=== PATIENT | male | born 1955 | race Caucasian/White ===

== ENCOUNTER 2020-09-27 07:39 | Outpatient (REF) | payer OTHER, SELFPAY ==
[2020-09-27 08:25] LABS: MANUAL DIFF FLAG NO
[2020-09-27 08:29] LABS: Basophils Percent Auto 0.4 % (0-2); Eosinophils Absolute Auto 0.1 X10*3/uL (0.0-0.4); Eosinophils Percent Auto 1.8 % (0-4); Hematocrit 45.4 % (42-52); Hemoglobin 15.2 g/dl (14.0-18.0); Imm Gran Abs Auto 0.02 X10*3/uL (0.00-0.03); Imm Gran Pct Auto 0.3 % (0.0-0.4); Lymphocytes Absolute Auto 2.3 X10*3/uL (1.2-4.9); Lymphocytes Percent Auto 33.5 % (20-40); Mean Corpuscular HGB Conc 33.5 g/dl (31.0-36.0); Mean Corpuscular Volume 89.5 fL (80-98); Mean Platelet Volume 10.3 fL (9.4-12.4); Monocytes Absolute Auto 0.6 X10*3/uL (0.1-1.2); Monocytes Percent Auto 8.1 % (2-11); Neutrophils Absolute Auto 3.8 X10*3/uL (2.0-8.3); Neutrophils Percent Auto 55.9 % (45-73); Platelet Count 191 X10*3/uL (160-400); Red Blood Count 5.07 X10*6/uL (4.60-5.80); Red Cell Distribution Width 12.3 % (11.0-16.0); White Blood Count 6.8 X10*3/uL (4.8-10.8)
[2020-09-27 08:38] LABS: Estimated Average Glucose 131 mg/dL; Hemoglobin A1c % 6.2 %
[2020-09-27 08:46] LABS: Alanine Aminotransferase 21 U/L (0-40); Albumin Level 4.2 g/dL (3.5-5.0); Alkaline Phosphatase 67 U/L (39-117); Anion Gap 12 (12-20); Aspartate Amino Transferase 17 U/L (5-37); Bilirubin Total 0.3 mg/dL (0.0-1.0); Blood Urea Nitrogen 14 mg/dL (9-16); Calcium 8.6 mg/dL (8.4-10.2); Carbon Dioxide 27 mmol/L (22-29); Chloride 106 mmol/L (96-108); Cholesterol 141 mg/dL; Estimated Glomerular Filt Rate > 60; Glucose Fasting 104 mg/dL (60-99); HDL Cholesterol 39 mg/dL; LDL Cholesterol Calculated 64 mg/dl; Potassium 4.6 mmol/l (3.3-5.1); Sodium 140 mmol/L (135-145); Total Protein 6.5 g/dL (6.5-8.0); Triglycerides 192 mg/dL
[2020-09-27 09:09] LABS: Prostate Specific Antigen 1.39 ng/mL (<0.05-4.0)
[2020-09-27 09:35] LABS: Glucose Urine UA NEG (NEG); Leukocyte Esterase Urine NEG (NEG); Nitrite Urine NEG (NEG); Urine Blood TRACE (NEG); Urine Ketones NEG (NEG); Urine Protein NEG (NEG-TRACE)
[2020-09-27 09:36] LABS: Appearance Urine CLEAR; Color Urine YELLOW
[2020-09-27 09:43] LABS: RBC Urine 0-2 /HPF (0); WBC Urine 0 /HPF (0-4)
[2020-09-27 10:49] LABS: Microalbum/Creatinine Ratio Ur 5.7 ug/mg cr
== END 2020-09-27 07:40 | disposition home or self-care (01) ==
LOC: HO.LAB 07:39
PROVIDERS: PCP Internal Medicine; Visit Provider Internal Medicine
DX: I10 Essential (primary) hypertension (principal); R73.03 Prediabetes; K21.9 Gastro-esophageal reflux disease without esophagitis; E78.00 Pure hypercholesterolemia, unspecified; Z12.5 Encounter for screening for malignant neoplasm of prostate
CPT/HCPCS: 36415; 80053; 80061; 81001; 81003; 82043; 83036; 84153; 85025

== ENCOUNTER 2021-07-03 09:16 | Emergency (ER) | payer OTHER, SELFPAY ==
--- NOTE | ~2021-07-03 | CT_ITS ---
EXAMINATION: CT HEAD WITHOUT CONTRAST CLINICAL INFORMATION: Head injury, positive LOC. Rule out fracture. COMPARISON: None TECHNIQUE: Contiguous axial imaging was performed from the skull base to vertex without intravenous administration of contrast. This CT examination was performed using dose optimization techniques as appropriate, variously including the following: *Automated exposure control *Adjustment of mA and/or kV according to patient size (this includes techniques or standardized protocols for targeted exams where dose is matched to indication/reason for exam; i.e. extremities or head) *Use of iterative reconstruction technique DLP: 796 mGy-cm FINDINGS: There is no evidence of acute intracranial hemorrhage or territorial infarction. No abnormal mass effect or midline shift is seen. Ramires to white matter differentiation is well preserved. No extra-axial fluid collections are identified. The ventricles are normal in size. There is no abnormal attenuation within the brain parenchyma. The osseous structures and soft tissues are normal. The mastoid air cells and visualized portions of the paranasal sinuses are well aerated. CT/CT head/brain wo con IMPRESSION: No acute intracranial process seen.
[2021-07-03 09:19] VITALS: BP 169/86; PULSE 91; RESP 16; TEMP 36.9; O2SAT 99; BMI 22.9
--- NOTE | 2021-07-03 10:55 | ED_ITS ---
HPI - Fall General Chief Complaint: Fall Stated Complaint: Fall Time Seen by Provider: 07/03/21 09:37 Source: patient Mode of arrival: EMS Limitations: no limitations History of Present Illness HPI Narrative: 65-year-old male who presents emergency department for evaluation of injuries from a fall. The patient works at [employer]. He states that he was moving a student desk when he slipped on a polished floor causing his legs to go out from under him. He states that he fell backwards landing on his back, right elbow and striking the right side of his head on the floor. The patient does not recall but it was reported that he may have had a loss of consciousness. He was transported to the emergency department by ambulance he states that he was able to stand up and walk to the stretcher without any difficulty. Patient is currently complaining of [id number] pain on the right side of his head and a headache which is located throughout his head. He denied numbness, weakness, nausea or vomiting. He is also complaining of mild pain with no limited motion of the right elbow. He is also complaining of mild to moderate, constant, dull, lower back pain. Related Data Allergies Allergy/AdvReac Type Severity Reaction Status Date / Time No Known Allergies Allergy Verified 07/03/21 09:22 Review of Systems Review of Systems: Yes all other systems are reviewed and are negative [facility] Past Medical History [facility] Narrative: Past medical history: Hypertension, hyperlipidemia, GERD, anxiety. Past surgical history: Appendectomy, back surgery L5-S1. Social history: The patient smokes 1/2 pack of cigarettes per day times 45 years. Denies alcohol use. He denies drug use. Social History Social History Advance Directives: Yes Advance Directives Information Provided: Yes Advance Directives on File: No Physical Exam Vital Signs: Vital Signs: Last Vital Signs Temp 98.5 F 07/03/21 09:19 Pulse 91 07/03/21 09:19 Resp 16 07/03/21 09:19 BP 169/86 H 07/03/21 09:19 Pulse Ox 99 07/03/21 09:19 Body Mass Index 22.9 Const: General: cooperative and no acute distress Orientation/consciousness: oriented to person and oriented to place Limitations: no limitations HENMT: Head: Yes normal to inspection, Yes normocephalic and Yes other (Tender, right scalp, no hematoma, no ecchymosis) Ears: external ears normal General nose exam: Normal external nose present Face and sinus: Yes normal facial exam Mouth: Normal oral and palatal mucosa present Throat: Yes posterior oropharynx normal Eyes: General: appearance normal, both eyes and all related structures Pupils: Equal, round and reactive pupils present Neck: Neck: Yes normal visual inspection, Yes no lymphadenopathy, Yes trachea midline and Yes supple Chest: Chest palpation & inspection: normal inspection of the chest and normal palpation of entire chest wall Resp: Effort & Inspection: normal respiratory effort and able to speak in complete sentences Auscultation: clear to auscultation bilaterally Cardio: Rate: regular rate Rhythm: regular rhythm Heart sounds: S1 normal heart sound present, S2 normal heart sound present and no murmurs GI: Inspection: Yes normal to inspection Palpation (GI): Soft to palpation, nontender and no guarding Auscultation: normal bowel sounds : General: Yes no CVA tenderness Back/Spine/Pelvis: Back: no CVA tenderness Cervical Spine: normal cervical lordosis Thoracic/Lumbar Spine: thoracic and lumbar spine normal to inspection and paraspinal muscle tenderness bilaterally in the mid lumbar and in the lower lumbar Skin: General skin exam: no rashes or lesions noted Neuro: General: oriented to person and oriented to place Cranial nerves: Yes CN's II-XII intact bilaterally and Yes Equal, round and reactive pupils present Cognition (Neuro): normal cognition Motor exam (neuro): 5/5 motor strength present throughout Extrem: Other: The patient has no ecchymosis soft tissue swelling or tenderness with palpation of his right elbow, has full range of motion without any limitations. His other extremities are unremarkable. Psych: Appearance: grossly normal Speech and movement: Normal speech and movement present Affect: normal affect Attitude: cooperative Thought process: Normal thought process present Thought content: Normal thought content present Course Course Course Narrative: 65-year-old male who presents emergency department for evaluation of injuries from a fall that occurred at work. The patient did strike his head on the floor and had reported loss consciousness. On his physical examination he did have tenderness with palpation over his right scalp with no hematoma or ecchymosis. He also had tenderness with palpation of his lower lumbar back as well as his right elbow with no limited range of motion of his back or elbow. I did obtain a CT scan of the patient's head and this was interpreted as no acute fracture or bleed by the radiologist. The patient was treated with ibuprofen 600 mg orally. Patient was discharged home. Patient believes that he can return to work tomorrow therefore he was given no time off. The patient was given verbal and printed instructions prior to discharge. The patient was advised to follow-up with his PCP in 2 days and to return to the emergency department if his symptoms get worse or if he develops any new symptoms that are concerning to him. Discharge Plan Discharge Clinical Impression: Closed head injury, Contusion of elbow, right, Back contusion, Fall, Accident while engaged in work-related activity Patient Disposition: Home, Self-Care Instructions: Head Injury (ED), Low Back Strain (ED) Additional Instructions: Take Motrin (ibuprofen) 200 mg pills, 3 pills every 6 hours as needed for pain. Take Tylenol (acetaminophen) 500 mg pills, 2 pills every 6 hours as needed for pain. Apply ice for 15 minutes to the area that hurts for 15 minutes. Do this 4-6 times a day to help reduce the pain in your back. Continue with normal activities as tolerated since staying in bed and not moving around will make your pain worse. Please return to the Emergency Department or see your doctor immediately if your symptoms get worse or if you develop any new symptoms that are concerning you. Follow up with your doctor in 2 day. Please read the other printed discharge instructions on head injury and low back strain Interventions: ED Discharge Assessment Last Done: 07/03/21 11:09 Discharge Date/Time: 07/03/21 11:10
[2021-07-03] MEDS: Ibuprofen 600 MG TABLET PO (10:58)
== END 2021-07-03 11:10 | disposition home or self-care (01) ==
PROVIDERS: Emergency Provider Emergency Medicine Emergency Medical Services; PCP Internal Medicine
DX: S09.90XA Unspecified injury of head, initial encounter (principal); S50.01XA Contusion of right elbow, initial encounter; M79.601 Pain in right arm; I10 Essential (primary) hypertension; E78.5 Hyperlipidemia, unspecified; F17.210 Nicotine dependence, cigarettes, uncomplicated; W01.0XXA Fall on same level from slipping, tripping and stumbling without subsequent striking against object, initial encounter; Y93.9 Activity, unspecified; Y92.9 Unspecified place or not applicable; Y99.0 Civilian activity done for income or pay; Z71.6 Tobacco abuse counseling
CPT/HCPCS: 70450; 99283; 99284

== ENCOUNTER → 2021-07-16 09:41 | Outpatient (BNVA) | payer OTHER, SELFPAY | PROVIDERS: PCP Internal Medicine; Visit Provider Physician Assistant | DX: S00.93XA Contusion of unspecified part of head, initial encounter (principal); W18.30XA Fall on same level, unspecified, initial encounter; M25.521 Pain in right elbow; R07.81 Pleurodynia | CPT/HCPCS: 99204 ==

== ENCOUNTER 2021-09-09 14:25 | Outpatient (REF) | payer OTHER, SELFPAY ==
--- NOTE | ~2021-09-09 | XR_ITS ---
EXAMINATION: XR SINUSES CLINICAL INFORMATION: Right sinus pain and pressure. COMPARISON: None TECHNIQUE: 3 views of the sinuses were obtained. FINDINGS: Paranasal sinuses appear clear without air-fluid levels. No fractures are identified. No radiodense foreign bodies. The soft tissues are unremarkable. XR/XR sinus <3V IMPRESSION: Unremarkable examination.
== END 2021-09-09 14:26 | disposition home or self-care (01) ==
LOC: HO.XRAY 14:25
PROVIDERS: PCP Internal Medicine; Visit Provider Internal Medicine
DX: J34.89 Other specified disorders of nose and nasal sinuses (principal)
CPT/HCPCS: 70210

== ENCOUNTER 2021-09-30 07:20 | Outpatient (REF) | payer OTHER, SELFPAY ==
--- NOTE | ~2021-09-30 | CT_ITS ---
EXAMINATION: CT SINUS WITHOUT CONTRAST CLINICAL INFORMATION: 65-year-old with sinus and head pain. COMPARISON: None TECHNIQUE: Volumetric CT imaging of the paranasal sinuses was done with multiplanar reformatted reconstructions. This CT examination was performed using dose optimization techniques as appropriate, variously including the following: *Automated exposure control *Adjustment of mA and/or kV according to patient size (this includes techniques or standardized protocols for targeted exams where dose is matched to indication/reason for exam; i.e. extremities or head) *Use of. Iterative reconstruction technique DLP: 116 mGy-cm FINDINGS: Nasal Cavity: There is marked nasal septal deviation to the right with a spur encroaching on the right middle turbinate and middle meatus as well as the right inferior turbinate. There is paradoxical curvature of the left middle turbinate, with an atelectatic right middle turbinate. There is predominant opacification of the olfactory recesses bilaterally, which is nonspecific. There is polypoid soft tissue thickening in the superior right nasal cavity extending into the right olfactory recess which may reflect a polyp. Correlate with direct visualization. The nasopharyngeal soft tissues appear grossly unremarkable. Maxillary Sinuses: Well-pneumatized and predominantly clear with a tiny retention cyst along the floor of the left maxillary sinus with bilaterally patent OMCs. Ethmoid Sinuses: The ethmoid complex is largely unopacified, with intact bony galvin. Frontal Sinuses: The frontal sinuses are clear and well pneumatized, with bilaterally patent frontal recesses. There is an Onodi cell on the left extending to the tuberculum sellae. Sphenoid Sinus: Well-pneumatized. Minor mucosal thickening adjacent to the left sphenoid ostium. The carotid canals are covered by bone. Additional Findings: The visualized orbital soft tissues structures and visualized intracranial structures appear grossly unremarkable within the limitations of the exam. The visualized mastoids and middle ear cavities are unopacified. CT/CT sinus wo con IMPRESSION: 1. Marked nasal septal deviation to the right with a prominent spur on the right, as described above. 2. Bilateral olfactory recess opacification with a possible anterosuperior right nasal polyp and possibly a smaller anterosuperior left nasal polyp encroaching on the olfactory recesses. Correlate with direct visualization. 3. Probable tiny retention cyst along the floor of the left maxillary sinus.
== END 2021-09-30 07:21 | disposition home or self-care (01) ==
LOC: HO.CT 07:20
PROVIDERS: PCP Internal Medicine; Visit Provider Internal Medicine
DX: J34.89 Other specified disorders of nose and nasal sinuses (principal); R51.9 Headache, unspecified
CPT/HCPCS: 70486

== ENCOUNTER 2022-01-25 07:20 | Outpatient (REF) | payer OTHER, SELFPAY ==
[2022-01-25 07:34] LABS: MANUAL DIFF FLAG NO
[2022-01-25 07:54] LABS: Appearance Urine HAZY; Color Urine YELLOW; Glucose Urine UA NEG (NEG); Leukocyte Esterase Urine NEG (NEG); Nitrite Urine NEG (NEG); Urine Blood 1+ (NEG); Urine Ketones NEG (NEG); Urine Protein NEG (NEG-TRACE)
[2022-01-25 07:54] LABS: Basophils Percent Auto 0.4 % (0-2); Eosinophils Absolute Auto 0.1 X10*3/uL (0.0-0.4); Eosinophils Percent Auto 1.5 % (0-4); Hematocrit 46.8 % (42.0-52.0); Hemoglobin 15.1 g/dl (14.0-18.0); Imm Gran Abs Auto 0.02 X10*3/uL (0.00-0.03); Imm Gran Pct Auto 0.3 % (0.0-0.4); Lymphocytes Absolute Auto 2.2 X10*3/uL (1.2-4.9); Lymphocytes Percent Auto 30.1 % (20-40); Mean Corpuscular HGB Conc 32.3 g/dl (31.0-36.0); Mean Corpuscular Hemoglobin 29.5 pg (27.0-33.0); Mean Corpuscular Volume 91.6 fL (80.0-98.0); Mean Platelet Volume 10.3 fL (9.4-12.4); Monocytes Absolute Auto 0.7 X10*3/uL (0.1-1.2); Neutrophils Absolute Auto 4.2 x10*3/uL (2.0-8.3); Neutrophils Percent Auto 58.7 % (45-73); Platelet Count 178 X10*3/uL (160-400); Red Blood Count 5.11 X10*6/uL (4.60-5.80); Red Cell Distribution Width 12.3 % (11.0-16.0); White Blood Count 7.2 X10*3/uL (4.8-10.8)
[2022-01-25 08:01] LABS: Mucus Urine 2+ /LPF; WBC Urine 0 /HPF (0-4)
[2022-01-25 08:24] LABS: Alanine Aminotransferase 22 U/L (0-40); Albumin Level 4.1 g/dL (3.5-5.0); Alkaline Phosphatase 61 U/L (39-117); Anion Gap 13 (12-20); Aspartate Amino Transferase 17 U/L (5-37); Bilirubin Total 0.4 mg/dL (0.0-1.0); Blood Urea Nitrogen 15 mg/dL (9-16); Calcium 9.2 mg/dL (8.4-10.2); Carbon Dioxide 26 mmol/L (22-29); Chloride 106 mmol/L (96-108); Cholesterol 164 mg/dL; Estimated Glomerular Filt Rate > 60; Glucose Fasting 121 mg/dL (60-99); HDL Cholesterol 42 mg/dL; LDL Cholesterol Calculated 94 mg/dl; Potassium 4.3 mmol/L (3.3-5.1); Sodium 141 mmol/L (135-145); Total Protein 6.6 g/dL (6.5-8.0); Triglycerides 143 mg/dL
[2022-01-25 08:47] LABS: Prostate Specific Antigen 2.46 ng/mL (<0.05-4.0)
== END 2022-01-25 07:21 | disposition home or self-care (01) ==
LOC: HO.LAB 07:20
PROVIDERS: PCP Internal Medicine; Visit Provider Internal Medicine
DX: I10 Essential (primary) hypertension (principal); N40.0 Benign prostatic hyperplasia without lower urinary tract symptoms; K21.9 Gastro-esophageal reflux disease without esophagitis; E78.00 Pure hypercholesterolemia, unspecified; Z12.5 Encounter for screening for malignant neoplasm of prostate
CPT/HCPCS: 36415; 80053; 80061; 81001; 84153; 85025

== ENCOUNTER 2022-06-11 15:27 | Outpatient (REF) | payer OTHER, SELFPAY ==
[2022-06-11 16:05] LABS: Estimated Average Glucose 128 mg/dL; Hemoglobin A1c % 6.1 %
[2022-06-11 16:31] LABS: Anion Gap 11 (12-20); Blood Urea Nitrogen 14 mg/dL (9-16); Calcium 9.1 mg/dL (8.4-10.2); Carbon Dioxide 26 mmol/L (22-29); Chloride 105 mmol/L (96-108); Estimated Glomerular Filt Rate > 60; Glucose Random 96 mg/dL (60-115); Potassium 4.2 mmol/L (3.3-5.1); Sodium 138 mmol/L (135-145)
== END 2022-06-11 15:28 | disposition home or self-care (01) ==
LOC: HO.LAB 15:27
PROVIDERS: PCP Internal Medicine; Visit Provider Internal Medicine
DX: R73.03 Prediabetes (principal); I10 Essential (primary) hypertension
CPT/HCPCS: 36415; 80048; 83036

== ENCOUNTER 2022-08-06 07:18 | Day surgery (SDC) | payer OTHER, SELFPAY ==
[2022-07-31 14:13] VITALS: BMI 29.0
--- NOTE | 2022-08-06 07:43 | P.CONAN_ITS ---
HPI - Anesthesia Eval Consult details Narrative: Abdominal pain, colon surveillance PMFSH Active Problems Active Problems: All Active Problems (Updated 07/31/22 @ 14:13 by Clara Zhou RN) Closed head injury (Acute) Contusion of elbow, right (Acute) Back contusion (Acute) Fall (Acute) Accident while engaged in work-related activity (Acute) Past Medical History Medical History Barretts esophagus Elevated cholesterol GERD (gastroesophageal reflux disease) HTN (hypertension) Family History Family history of problems with anesthesia: No Surgical History Surgical History H/O colonoscopy History of back surgery History of esophagogastroduodenoscopy (EGD) Hx of appendectomy History of Problems with Anesthesia: No Social History Social History Patient Tobacco Use Status: Current everyday Tobacco user Tobacco use type: Cigarette Cigarette Packs Per Day: 1 Cigarettes Per Day: 20.0 Advance Directives: No Advance Directives Information Provided: Yes Meds Allergies Allergy/AdvReac Type Severity Reaction Status Date / Time No Known Allergies Allergy Verified 07/03/21 09:22 Active Medications: Current Medications Sodium Biphosphate/Sodium Phosphate (Sodium Phosphate,[place]-Dibasic 133 Ml Enema) 133 ml FL ONCE PRN PRN Reason: Poor Colonoscopy Prep Results Home Medications Medication Instructions Recorded Confirmed Last Taken Type buspirone 5 mg tablet 1 tab PO BID 07/31/22 07/31/22 Unknown History lisinopril 5 mg tablet 1 tab PO DAILY 07/31/22 07/31/22 Unknown History omeprazole 20 mg capsule,delayed 1 cap PO DAILY 07/31/22 07/31/22 Unknown Hist ory release simvastatin 40 mg tablet 1 tab PO DAILY 07/31/22 07/31/22 Unknown History Exam Exam Date and Time: August 06, 2022 0743 Height,Weight and Vital Signs: Height 5 ft 7 in Weight 83.915 kg Airway Mallampati Class: II TM Dist: >3cm Neck ROM: Full Loose/Missing/Broken Teeth: Yes (poor dentition, 2 upper crowns missing, 1 on each side. patient stated his dentist fixing soon) Heart: [id number] Lungs: cta b/l Assessment and Plan Assessment Anesthesia Assessment: Anesthesia Plan Discussed and Chart Reviewed Final Anesthetic Review Family History of Problems with Anesthesia: No History of Problems with Anesthesia: No NPO: Yes ASA Class: II Final Preanesthetic Review: No Changes in Pt Med Stat, Meds/Allgs Chart Revi ewed, Consent Obtained/Reviewed and Anes Risks/Benef Reviewed Patient Risk: Intermediate Procedure Risk: Low Assessment/Block/Sedation in SS: Assess/Block/Sedation-SS Anesthetic Plan Anesthetic Plan: MAC: and Agree w/ Assess. and Plan Disposition: Standard PACU
[2022-08-06 07:45] VITALS: BP 127/86; PULSE 75; RESP 18; TEMP 36.4; O2SAT 96; BMI 29.0
[2022-08-06 07:50] VITALS: BMI 29.0
[2022-08-06] MEDS: Lactated Ringers 1,000 ML 50 ML IVCONT (08:06)
[2022-08-06 09:41] VITALS: BP 101/62; PULSE 90; RESP 16; TEMP 36.4; O2SAT 96
--- NOTE | 2022-08-06 09:45 | P.BOP_ITS ---
Brief Operative Note Date of Service: 08/06/22 Pre-op diagnosis: Toth's, Screening Post-op diagnosis: other (Same, Hiatal hernia, Colon polyp) Procedure: Colonoscopy to the cecum and TI with cold snare polypectomy, EGD with biopsies Surgeon: Teodoro Choi Anesthesia: MAC Was an Sales Clerk Food used for this Procedure?: No Estimated blood loss (mL): 2.0 Pathology: other (A. Polyp at 20cm B. EG Junction at 37cm) Condition: stable Disposition: PACU
[2022-08-06 09:56] VITALS: BP 131/86; PULSE 82; RESP 16; TEMP 36.4; O2SAT 96
--- NOTE | 2022-08-06 10:33 | OP_ITS ---
SURGEON: Teodoro Choi MD INDICATIONS: The patient presents for evaluation of personal history of tubular adenoma of the colon, colorectal cancer screening, gastroesophageal reflux, and Toth esophagus. Full consent has been obtained from him for this, including risks of bleeding and perforation. PREOPERATIVE DIAGNOSIS: POSTOPERATIVE DIAGNOSIS: Gastroesophageal reflux, Toth esophagus, colorectal cancer screening, personal history of tubular adenoma of the colon, hiatal hernia, colon polyp, diverticulosis, and internal hemorrhoids. PROCEDURE PERFORMED: Esophagogastroduodenoscopy with biopsy, and colonoscopy to the cecum and terminal ileum with cold snare polypectomy. ESTIMATED BLOOD LOSS: COMPLICATIONS: ANESTHESIA: Monitored anesthesia care. ASSISTANTS: SPECIMENS: PREOPERATIVE DIAGNOSES: Gastroesophageal reflux, Toth esophagus, colorectal cancer screening, personal history of tubular adenoma of the colon. DESCRIPTION OF PROCEDURE: The patient was placed in the left lateral decubitus position. The digital rectal exam revealed no abnormalities. The Olympus video pediatric colonoscope was entered into the rectum and advanced easily to the cecum. Once in the cecum, I did identify a normal-appearing cecal pouch with appendiceal orifice and a normal-appearing ileocecal valve. The terminal ileum was cannulated and appeared normal. The scope was withdrawn back in the colon. The entire cecum and ileocecal valve appeared normal. The scope was slowly withdrawn assessing all mucosal surfaces carefully. Preparation was excellent. At 20 cm was an approximately 5 or 6 mm polyp, which was removed by cold snare polypectomy and recovered by suction. The polypectomy site appeared clean, without any sign of residual polyp nor any significant bleeding. I did not visualize any other polyps, colitis, nor angiodysplasia. There was a mild amount of sigmoid diverticulosis. In the rectum, the scope was retroflexed visualizing internal hemorrhoids but no other pathology. The rectal mucosa appeared normal. The scope was straightened and withdrawn from the patient. He was turned around for the upper endoscopy. The Olympus video gastroscope was passed in the posterior oropharynx and upper esophagus under direct vision. The scope was passed slowly into the distal esophagus. The gastroesophageal junction appeared at 37 cm. There was a very minimal irregularity but no esophagitis. The scope entered into the stomach. There was a small to moderate-sized hiatal hernia. The hiatal hernia mucosa appeared normal. The scope was advanced to the pylorus and the duodenum was cannulated to the descending portion. The duodenum including the bulb appeared normal without mass or ulceration. The scope was withdrawn back in the stomach. The gastric antrum and body appeared normal with good peristalsis. The scope was retroflexed visualizing the proximal stomach carefully, which appeared normal, without any sign of mass or ulceration. The scope was straightened and withdrawn back to the esophagus. Biopsies were obtained from the EG junction at 37 cm. Proximal to this, the esophageal mucosa appeared normal. The scope was withdrawn from the patient. He tolerated both procedures well and was returned to the recovery area in stable condition. IMPRESSION: 1. Colon polyp. 2. Diverticulosis. 3. Internal hemorrhoids. 4. Hiatal hernia. 5. History of Toth esophagus. PLAN: The results of the biopsies will be checked. I would recommend a repeat upper endoscopy and colonoscopy in 5 years. I do not think the upper endoscopy needs to be done sooner given the very minimal findings both in the past and on today's exam. He was advised not to use any aspirin or NSAIDs for 1 week. He will continue omeprazole for symptomatic relief of reflux. MD CRISTOFER Aguilera/CHINO / [id number]
== END 2022-08-06 10:43 | disposition home or self-care (01) ==
PROVIDERS: PCP Internal Medicine; Visit Provider Internal Medicine
PROC: (CPT 45385; principal; 2022-08-06 08:30)
DX: Z12.11 Encounter for screening for malignant neoplasm of colon (principal); Z86.010 Personal history of colon polyps; K63.5 Polyp of colon; K57.30 Diverticulosis of large intestine without perforation or abscess without bleeding; K64.8 Other hemorrhoids; K22.70 Barrett's esophagus without dysplasia; K21.9 Gastro-esophageal reflux disease without esophagitis; K44.9 Diaphragmatic hernia without obstruction or gangrene; I10 Essential (primary) hypertension; E78.5 Hyperlipidemia, unspecified; F41.1 Generalized anxiety disorder; F17.210 Nicotine dependence, cigarettes, uncomplicated; Z79.899 Other long term (current) drug therapy
CPT/HCPCS: 45385; 43239; 88305

== ENCOUNTER 2023-02-16 06:15 | Outpatient (REF) | payer OTHER, SELFPAY ==
[2023-02-16 06:25] LABS: MANUAL DIFF FLAG NO
[2023-02-16 08:01] LABS: Basophils Percent Auto 0.4 % (0-2); Eosinophils Absolute Auto 0.1 X10*3/uL (0.0-0.4); Eosinophils Percent Auto 1.7 % (0-4); Hematocrit 45.3 % (42.0-52.0); Hemoglobin 14.9 g/dl (14.0-18.0); Imm Gran Abs Auto 0.02 X10*3/uL (0.00-0.03); Imm Gran Pct Auto 0.3 % (0.0-0.4); Lymphocytes Absolute Auto 2.9 X10*3/uL (1.2-4.9); Lymphocytes Percent Auto 42.1 % (20-40); Mean Corpuscular HGB Conc 32.9 g/dl (31.0-36.0); Mean Corpuscular Hemoglobin 28.9 pg (27.0-33.0); Mean Platelet Volume 10.8 fL (9.4-12.4); Monocytes Absolute Auto 0.7 X10*3/uL (0.1-1.2); Monocytes Percent Auto 9.8 % (2-11); Neutrophils Absolute Auto 3.2 x10*3/uL (2.0-8.3); Neutrophils Percent Auto 45.7 % (45-73); Platelet Count 201 X10*3/uL (160-400); Red Blood Count 5.15 X10*6/uL (4.60-5.80); Red Cell Distribution Width 12.2 % (11.0-16.0); White Blood Count 6.9 X10*3/uL (4.8-10.8)
[2023-02-16 08:01] LABS: Appearance Urine Clear; Color Urine Yellow; Glucose Urine UA Negative (Negative); Leukocyte Esterase Urine Negative (Negative); Nitrite Urine Negative (Negative); PH 5.5 (5.0-9.0); Specific Gravity - Urine 1.025 (1.005-1.025); UMIC TRIGGER UA YES; Urine Blood Small (1+) (Negative); Urine Ketones Negative (Negative); Urine Protein Negative (Neg-Trace)
[2023-02-16 08:12] LABS: Estimated Average Glucose 137 mg/dL; Hemoglobin A1c % 6.4 %
[2023-02-16 08:15] LABS: Bacteria Urine None Seen (None Seen); Hyaline Casts Urine 0-2 /LPF (0-2); Squamous Epithelial Cell Urine 0-2 /HPF (0-2); WBC Urine 0-5 /HPF (0-5)
[2023-02-16 08:29] LABS: Creatinine Urine 253.98 mg/dL; Microalbum/Creatinine Ratio Ur 6.2 ug/mg cr
[2023-02-16 08:35] LABS: Alanine Aminotransferase 20 U/L (0-40); Albumin Level 4.3 g/dL (3.5-5.0); Alkaline Phosphatase 64 U/L (39-117); Anion Gap 14 (12-20); Aspartate Amino Transferase 17 U/L (5-37); Bilirubin Total 0.6 mg/dL (0.0-1.0); Blood Urea Nitrogen 12 mg/dL (9-16); Calcium 8.8 mg/dL (8.4-10.2); Carbon Dioxide 25 mmol/L (22-29); Chloride 105 mmol/L (96-108); Cholesterol 179 mg/dL; Estimated Glomerular Filt Rate > 60; Glucose Fasting 112 mg/dL (60-99); HDL Cholesterol 40 mg/dL; LDL Cholesterol Calculated 92 mg/dl; Sodium 140 mmol/L (135-145); Total Protein 6.7 g/dL (6.5-8.0); Triglycerides 236 mg/dL
== END 2023-02-16 06:16 | disposition home or self-care (01) ==
LOC: HO.LAB 06:15
PROVIDERS: PCP Internal Medicine; Visit Provider Internal Medicine
DX: Z00.00 Encounter for general adult medical examination without abnormal findings (principal); I10 Essential (primary) hypertension; N40.0 Benign prostatic hyperplasia without lower urinary tract symptoms; Z72.0 Tobacco use
CPT/HCPCS: 36415; 80053; 80061; 81001; 81003; 82043; 83036; 85025

== ENCOUNTER 2023-08-27 11:21 | Outpatient (REF) | payer MEDICARE, SELFPAY ==
[2023-08-27 14:55] LABS: Creatinine Urine 175.36 mg/dL; Microalbum/Creatinine Ratio Ur 6.8 ug/mg cr (<30)
== END 2023-08-27 11:22 | disposition home or self-care (01) ==
LOC: HO.LAB 11:21
PROVIDERS: PCP Internal Medicine; Visit Provider Internal Medicine
DX: I10 Essential (primary) hypertension (principal); R73.03 Prediabetes; K21.9 Gastro-esophageal reflux disease without esophagitis; E78.5 Hyperlipidemia, unspecified
CPT/HCPCS: 36415; 80053; 82043; 82570; 83036; 85025

== ENCOUNTER 2023-12-17 14:46 | Outpatient (REF) | payer MEDICARE, SELFPAY ==
--- NOTE | ~2023-12-17 | XR_ITS ---
EXAMINATION: XR SHOULDER, LEFT CLINICAL INFORMATION: Pain when lifting arm. COMPARISON: None available. TECHNIQUE: AP external rotation, Grashey, scapular Y, and axillary views of the left shoulder. FINDINGS: Bony alignment and mineralization are normal. The glenohumeral joint is intact. 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 The acromioclavicular and coracoclavicular intervals are normal. No fracture or dislocation is seen. There is no abnormal soft tissue calcification or foreign body. No left pneumothorax is seen. XR/XR shoulder LT min 2V IMPRESSION: 1. 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 2. No fracture or dislocation is seen.
== END 2023-12-17 14:47 | disposition home or self-care (01) ==
LOC: HO.XRAY 14:46
PROVIDERS: PCP Internal Medicine; Visit Provider Internal Medicine
DX: M25.512 Pain in left shoulder (principal)
CPT/HCPCS: 73030

== ENCOUNTER 2024-04-12 06:51 | Outpatient (REF) | payer MEDICARE, SELFPAY ==
[2024-04-12 07:10] LABS: MANUAL DIFF FLAG NO
[2024-04-12 07:35] LABS: Basophils Percent Auto 0.4 % (0-2); Eosinophils Absolute Auto 0.1 X10*3/uL (0.0-0.4); Eosinophils Percent Auto 1.5 % (0-4); Hematocrit 45.1 % (42.0-52.0); Hemoglobin 15.1 g/dl (14.0-18.0); Imm Gran Abs Auto 0.02 X10*3/uL (0.00-0.03); Imm Gran Pct Auto 0.3 % (0.0-0.4); Lymphocytes Absolute Auto 2.4 X10*3/uL (1.2-4.9); Lymphocytes Percent Auto 35.2 % (20-40); Mean Corpuscular HGB Conc 33.5 g/dl (31.0-36.0); Mean Corpuscular Hemoglobin 29.8 pg (27.0-33.0); Mean Corpuscular Volume 89.1 fL (80.0-98.0); Mean Platelet Volume 10.3 fL (9.4-12.4); Monocytes Absolute Auto 0.7 X10*3/uL (0.1-1.2); Monocytes Percent Auto 9.7 % (2-11); Neutrophils Absolute Auto 3.6 x10*3/uL (2.0-8.3); Neutrophils Percent Auto 52.9 % (45-73); Platelet Count 204 X10*3/uL (160-400); Red Blood Count 5.06 X10*6/uL (4.60-5.80); Red Cell Distribution Width 12.8 % (11.0-16.0); White Blood Count 6.7 X10*3/uL (4.8-10.8)
[2024-04-12 08:10] LABS: Alanine Aminotransferase 18 U/L (0-40); Albumin Level 4.2 g/dL (3.5-5.0); Alkaline Phosphatase 75 U/L (39-117); Anion Gap 13 (12-20); Aspartate Amino Transferase 16 U/L (5-37); Bilirubin Total 0.3 mg/dL (0.0-1.0); Blood Urea Nitrogen 16 mg/dL (9-16); Calcium 9.2 mg/dL (8.4-10.2); Carbon Dioxide 26 mmol/L (22-29); Chloride 107 mmol/L (96-108); Cholesterol 134 mg/dL (<200); Estimated Glomerular Filt Rate > 60; Glucose Fasting 123 mg/dL (60-99); HDL Cholesterol 45 mg/dL (>40); LDL Cholesterol Calculated 65 mg/dL (<100); Potassium 3.9 mmol/L (3.3-5.1); Sodium 142 mmol/L (135-145); Total Protein 6.8 g/dL (6.5-8.0); Triglycerides 122 mg/dL (<150)
[2024-04-12 08:13] LABS: Estimated Average Glucose 128 mg/dL; Hemoglobin A1c % 6.1 % (<6.0)
[2024-04-12 08:26] LABS: Prostate Specific Antigen 5.46 ng/mL (<0.05-4.0)
[2024-04-12 08:47] LABS: Appearance Urine Clear; Color Urine Yellow; Glucose Urine UA Negative (Negative); Leukocyte Esterase Urine Negative (Negative); Nitrite Urine Negative (Negative); PH 5.5 (5.0-9.0); Specific Gravity - Urine >= 1.030 (1.005-1.025); UMIC TRIGGER UA YES; Urine Blood Moderate (2+) (Negative); Urine Ketones Negative (Negative); Urine Protein Negative (Neg-Trace)
[2024-04-12 08:52] LABS: Bacteria Urine None Seen (None Seen); Hyaline Casts Urine 0-2 /LPF (0-2); Squamous Epithelial Cell Urine 0-2 /HPF (0-2); WBC Urine 0-5 /HPF (0-5)
[2024-04-12 09:45] LABS: Creatinine Urine 203.63 mg/dL; Microalbum/Creatinine Ratio Ur 9.8 ug/mg cr (<30)
== END 2024-04-12 06:52 | disposition home or self-care (01) ==
LOC: HO.LAB 06:51
PROVIDERS: PCP Internal Medicine; Visit Provider Internal Medicine
DX: R73.03 Prediabetes (principal); I10 Essential (primary) hypertension; Z12.5 Encounter for screening for malignant neoplasm of prostate; K21.9 Gastro-esophageal reflux disease without esophagitis
CPT/HCPCS: 36415; 80053; 80061; 81001; 82043; 82570; 83036; 84153; 85025

== ENCOUNTER 2024-08-25 13:30 | Outpatient (REF) | payer MEDICARE, SELFPAY ==
[2024-08-25 14:20] LABS: Estimated Average Glucose 123 mg/dL; Hemoglobin A1C 161.6726 umol/L; Hemoglobin A1c % 5.9 % (<6.0); Total Hemoglobin (HGBA1C) 3921.9971 umol/L
[2024-08-25 14:44] LABS: Anion Gap 10 (12-20); Blood Urea Nitrogen 12 mg/dL (9-16); Calcium 9.6 mg/dL (8.4-10.2); Carbon Dioxide 27 mmol/L (22-29); Chloride 106 mmol/L (96-108); Estimated Glomerular Filt Rate > 60; Glucose Random 84 mg/dL (60-115); Potassium 4.1 mmol/L (3.3-5.1); Sodium 139 mmol/L (135-145)
== END 2024-08-25 13:31 | disposition home or self-care (01) ==
LOC: HO.LAB 13:30
PROVIDERS: PCP Internal Medicine; Visit Provider Internal Medicine
DX: R73.03 Prediabetes (principal); I10 Essential (primary) hypertension; J44.9 Chronic obstructive pulmonary disease, unspecified
CPT/HCPCS: 36415; 80048; 83036

== ENCOUNTER 2025-03-22 08:53 | Outpatient (AMB) | payer MEDICARE, SELFPAY ==
[2025-03-22 09:09] VITALS: BP 158/90; PULSE 60; TEMP 36.4; O2SAT 98; BMI 28.0
--- NOTE | 2025-03-22 09:09 | A.OFFPC_ITS ---
Vital Signs 03/22/25 09:09 Height 5 ft 7 in Weight 81.193 kg BMI 28.0 BP 158/90 H Blood Pressure Location Lt brachial Position Sitting Pulse 60 Pulse Source Pulse Oximeter Temp 97.5 F Temp Source Axillary Pulse Oximetry (%) 98 Oxygen Delivery Method Room Air Intake Visit Reasons: High BP Cyber Security Specialist Required: No Accompanied by: Self / Same As Patient Allergies No Known Allergies Allergy (Verified 03/22/25 09:12) Tobacco use date assessed: 03/22/25 Fall risk assessment: No Falls in past year Last assessed Fall Risk: 03/22/25 Dental Screening Dental Screen Date: 03/22/25 Did you have a dental visit in the last 12 months?: Yes Did you have a dental problem in the last 6 months where you did not have access to dental care?: No HPI HPI Comments History of Present Illness Details History of Present Illness The patient is a 69-year-old male presenting with elevated blood pressure and follow-up after prostate cancer surgery. His blood pressure recordings show variability with blood pressures ranging systolic BP 160-180, diastolic 62-90, with the highest readings noted in the morning. Asymptomatic without any headaches, vision changes, lightheadedness, chest pain. The patient recently underwent prostatectomy for prostate cancer detected last fall and is awaiting further PSA testing in April. Anxiety is an ongoing concern, controlled with buspirone, and GERD with Toth?s esophagus is managed with omeprazole. The patient has impaired glucose tolerance, indicating a prediabetic status which is being routinely assessed. He quit smoking in October, eliminating his previous habit of smoking a few cigars daily. The patient maintains an active lifestyle including regular walking and gardening. Review of Systems - Cardiovascular: Reports elevated blood pressure. - Respiratory: Denies waking abruptly sh ort of breath; denies wheezing. Reports snoring. No apnea - Gastrointestinal: Denies heartburn wit h current omeprazole use. - Genitourinary: Status post-prostatecto my. - Psychological: Reports anxiety control led with Buspar. - Musculoskeletal: Denies muscle aches. - General: Denies swelling in legs. - Social: Recently quit tobacco use. Vital Signs - Blood Pressure: 158/90 - Heart Rate: 60 - Oxygen Saturation: 98% - Weight: 81.193 kg Health Maintenance - Smoking cessation was achieved in Dece mber, having quit cigars. - Regular exercise maintained through wa lking and gardening. - Monitoring of blood pressure and sched uled PSA testing in April as cancer follow-up. Physical Exam Constitutional: Awake and alert, no apparent distress Heart: RRR, S1S2, no murmurs, no edema Lungs: CTA bilaterally, no wheezing Extremities: No calf tenderness, no swelling in legs Skin: Warm and dry Neuro: Alert and oriented x 3 Assessment and Plan 1. Essential Hypertension The patient's blood pressure was raised significantly; lisinopril was increased to 20 mg daily to achieve better control of hypertension. BNP ordered to evaluate renal function and electrolyte levels. Given associated snoring, will also order sleep study to evaluate for MARITZA which may contribute to uncontrolled blood pressure levels 2. Prostate Cancer, status post-prostate ctomy The patient is scheduled for a PSA test in April after successful prostatectomy. Records will be reviewed at the patient's next visit. Follow-up with [facility] as scheduled 3. Hypolipidemia Patient to continue taking simvastatin 40 mg daily without any adverse side effects noted. Lipid panel ordered 4. Anxiety Disorder Continue Buspar 5 mg orally twice daily as it seems effective in managing the patient?s anxiety symptoms. 5. Gastroesophageal Reflux Disease with Toth?s Esophagus Continue omeprazole 20 mg daily for control of reflux symptoms, and monitor Toth's Esophagus. 6. Tobacco Use Cessation Commended for successful cessation of cigar smoking noted since October. 7. Impaired Glucose Tolerance Routine assessments to monitor glucose control should continue, recommending lifestyle changes if necessary. Hemoglobin A1c ordered [facility] Medical History (Updated 03/22/25 @ 10:07 by SYLVAIN Colmenares) Prediabetes Barretts esophagus Elevated cholesterol HTN (hypertension) GERD (gastroesophageal reflux disease) Surgical History Hx of appendectomy History of back surgery History of esophagogastroduodenoscopy (EGD) H/O colonoscopy (~08/06/22) Family History (Updated 03/22/25 @ 09:14 by Yenny Stephenson MA) Mother No problems noted. Father COPD (chronic obstructive pulmonary disease) Social History Housing: House Patient Tobacco Use Status: Former Tobacco user Tobacco use type: Cigarette Cigarette Packs Per Day: 0.5 Cigarettes Per Day: 10.0 e-Cigarette/Vaping Use: Former Use service: No Current occupational status: retired Cognitive needs: No Hearing needs: No Vision needs: Yes (rx glasses) Questionnaire PHQ-9 Over the last 2 weeks, how often have you been bothered by any of the following problems? 1. Little interest or pleasure in doing things: not at all 2. Feeling down, depressed, or hopeless: not at all 3. Trouble falling or staying asleep, or sleeping too much: not at all 4. Feeling tired or having little energy: not at all 5. Poor appetite or overeating: not at all 6. Feeling bad about yourself - or that you are a failure or have let yourself or your family down: not at all 7. Trouble concentrating on things, such as reading the newspaper or watching television: not at all 8. Moving or speaking so slowly that other people could have noticed. Or the opposite - being so fidgety or restless that you have been moving around a lot more than usual: not at all 9. Thoughts that you would be better off or of hurting yourself in some way: not at all Total score: 0 Source: Developed by Drs. Teodoro Guan, Leola Greenwood, Alexander Del Real and colleagues, with an educational ashley from [employer]. Thrive Questionnaire Date Thrive assessed: 03/22/25 I am a: Patient Within the past 12 months, did the food you bought not last and you didn't have the money to get more?: Never true Within the past 12 months, did you worry whether your food would run out before you got money to buy more?: Never true Do you have trouble paying for medicines?: No Do you have trouble getting transportation to medical appointments?: No Do you have trouble paying your heating and electricity bill?: No Do you have trouble taking care of your child, family member or friend?: No Do you have trouble with day-to-day activities such as bathing, preparing meals, shopping, managing finances, etc.?: No Are you currently unemployed and looking for a job?: No THRIVE Score: 0 AUDIT C Alcohol Use Questionnaire (AUDIT-C) 1. How often do you have a drink containing alcohol?: Never 3. How often do you have six or more drinks on one occasion?: Never Total Score: 0 OPAL-7 AMB Questionnaire OPAL-7 Date OPAL - 7 assessed: 03/22/25 Feeling nervous, anxious, or on edge: 0 = Not at all Not being able to stop or control worryin = Not at all Worrying too much about different things: 0 = Not at all Trouble relaxin = Not at all Being so restless that it is hard to sit still: 0 = Not at all Becoming easily annoyed or irritable: 0 = Not at all Feeling afraid as if something awful might happen: 0 = Not at all Total OPAL-7 score (0-4 normal; 5-9 mild; 10-14 moderate; 15-21 severe): 0 Source: Developed by Drs. Teodoro Guan, Leola Greenwood, Alexander Del Real and colleagues, with an educational ashley from [employer]. Physical exam (Primary Care) Vital Signs: Last Vital Signs Temp 97.5 F 03/22/25 09:09 Pulse 60 03/22/25 09:09 BP 158/90 H 03/22/25 09:09 Pulse Ox 98 03/22/25 09:09 Oxygen Delivery Method Room Air 03/22/25 09:09 BMI result Body Mass Index 28.0 Tobacco/Smoking Status: Tobacco use Status Tobacco use date assessed 03/22/25 03/22/25 09:15 Patient Tobacco Use Status Former Tobacco user 03/22/25 09:15 Tobacco use type Cigarette 03/22/25 09:15 e-Cigarette/Vaping Use Former Use 03/22/25 09:15 PHQ-9: PHQ-9 Score PHQ-9: Total score 0 03/22/25 09:17 Thrive Assessment: Date of Thrive Assessment Date Thrive assessed 03/22/25 03/22/25 09:15 Coding Level of Care Code Tele New Pt Level 4 (86070) Complex EM visit Add On G2211 Diagnoses Prediabetes R73.03 Barretts esophagus K22.70 HTN (hypertension) I10 Elevated cholesterol E78.00 Snoring R06.83 Assessment & Plan Assessment & Plan (1) Prediabetes: Code(s): R73.03 - Prediabetes Category: Medical Plan: Hemoglobin A1c ordered. Continue healthy diet and exercise (2) Barretts esophagus: Code(s): K22.70 - Toth's esophagus without dysplasia Category: Medical Plan: GERD symptoms controlled. Continue omeprazole (3) HTN (hypertension): Code(s): I10 - Essential (primary) hypertension Category: Medical Plan: Uncontrolled. Increase lisinopril to 20 mg daily. Check BMP today (4) Elevated cholesterol: Code(s): E78.00 - Pure hypercholesterolemia, unspecified Category: Medical Plan: Lipid panel ordered. Continue simvastatin and low-fat diet (5) Snoring: Code(s): R06.83 - Snoring Category: Medical Plan: Sleep study ordered Plan . Orders: Orders Hemoglobin A1c Today E78.00 - Pure hypercholesterolemia, unspecified, I10 - Essential (primary) hypertension, R73.03 - Prediabetes Basic Metabolic Panel Fasting Today E78.00 - Pure hypercholesterolemia, unspecified, I10 - Essential (primary) hypertension, R73.03 - Prediabetes Complete Blood Count Auto Diff Today K22.70 - Toth's esophagus without dysplasia RT home sleep study Today I10 - Essential (primary) hypertension, R06.83 - Snoring Lipid Panel Today E78.00 - Pure hypercholesterolemia, unspecified, I10 - Essential (primary) hypertension, R73.03 - Prediabetes Medications: New lisinopril 20 mg PO DAILY 90 tabs 1RF Changed From simvastatin 1 tab PO DAILY To simvastatin 40 mg PO DAILY 90 tabs 1RF From buspirone 1 tab PO BID To buspirone 5 mg PO BID 180 tabs 1RF From omeprazole 1 cap PO DAILY To omeprazole 20 mg PO DAILY 90 caps 1RF
== END 2025-03-22 09:29 | disposition home or self-care (01) ==
LOC: HO.HMCHD 08:54
PROVIDERS: PCP Internal Medicine; Visit Provider Physician Assistant
DX: R73.03 Prediabetes (principal); K22.70 Barrett's esophagus without dysplasia; I10 Essential (primary) hypertension; E78.00 Pure hypercholesterolemia, unspecified; R06.83 Snoring

== ENCOUNTER 2025-03-22 09:43 | Outpatient (REF) | payer MEDICARE, SELFPAY ==
[2025-03-22 13:01] LABS: MANUAL DIFF FLAG NO
[2025-03-22 13:17] LABS: Basophils Percent Auto 0.3 % (0-2); Eosinophils Absolute Auto 0.1 X10*3/uL (0.0-0.4); Eosinophils Percent Auto 0.8 % (0-4); Hematocrit 43.6 % (42.0-52.0); Hemoglobin 14.6 g/dl (14.0-18.0); Imm Gran Abs Auto 0.01 X10*3/uL (0.00-0.03); Imm Gran Pct Auto 0.2 % (0.0-0.4); Lymphocytes Absolute Auto 1.9 X10*3/uL (1.2-4.9); Lymphocytes Percent Auto 30.5 % (20-40); Mean Corpuscular HGB Conc 33.5 g/dl (31.0-36.0); Mean Corpuscular Hemoglobin 29.3 pg (27.0-33.0); Mean Corpuscular Volume 87.6 fL (80.0-98.0); Mean Platelet Volume 10.3 fL (9.4-12.4); Monocytes Absolute Auto 0.6 X10*3/uL (0.1-1.2); Monocytes Percent Auto 10.3 % (2-11); Neutrophils Absolute Auto 3.5 x10*3/uL (2.0-8.3); Neutrophils Percent Auto 57.9 % (45-73); Platelet Count 211 X10*3/uL (160-400); Red Blood Count 4.98 X10*6/uL (4.60-5.80); Red Cell Distribution Width 12.3 % (11.0-16.0); White Blood Count 6.1 X10*3/uL (4.8-10.8)
[2025-03-22 13:26] LABS: Estimated Average Glucose 131 mg/dL; Hemoglobin A1c % 6.2 % (<6.0)
[2025-03-22 13:32] LABS: Anion Gap 13 (12-20); Blood Urea Nitrogen 12 mg/dL (9-16); Calcium 9.2 mg/dL (8.4-10.2); Carbon Dioxide 28 mmol/L (22-29); Chloride 104 mmol/L (96-108); Cholesterol 183 mg/dL (<200); Estimated Glomerular Filt Rate > 60; Glucose Fasting 94 mg/dL (60-99); HDL Cholesterol 49 mg/dL (>40); LDL Cholesterol Calculated 95 mg/dL (<100); Potassium 3.9 mmol/L (3.3-5.1); Sodium 141 mmol/L (135-145); Triglycerides 195 mg/dL (<150)
== END 2025-03-22 09:44 | disposition home or self-care (01) ==
LOC: HO.10HDL 09:43
PROVIDERS: Visit Provider Physician Assistant
DX: R73.03 Prediabetes (principal); I10 Essential (primary) hypertension; E78.00 Pure hypercholesterolemia, unspecified; K22.70 Barrett's esophagus without dysplasia; K21.9 Gastro-esophageal reflux disease without esophagitis; R06.83 Snoring; Z85.46 Personal history of malignant neoplasm of prostate; Z90.79 Acquired absence of other genital organ(s)
CPT/HCPCS: 36415; 80048; 80061; 83036; 85025; 96127; 99202

== ENCOUNTER 2025-03-29 09:50 | Outpatient (AMB) | payer MEDICARE, SELFPAY ==
--- NOTE | 2025-03-29 09:55 | A.OFFPC_ITS ---
Vital Signs 03/29/25 09:59 03/29/25 10:12 Height 5 ft 7 in Weight 78.471 kg BMI 27.1 BP 142/84 H 138/86 Respiration 16 Pulse 72 Pulse Source Pulse Oximeter Temp 97.6 F Temp Source Temporal Artery Scan Pulse Oximetry (%) 99 Oxygen Delivery Method Room Air Intake Visit Reasons: 1 week F/U Implementation Architect Required: No Accompanied by: Self / Same As Patient Allergies No Known Allergies Allergy (Verified 03/29/25 09:58) Tobacco use date assessed: 03/29/25 Fall risk assessment: No Falls in past year Last assessed Fall Risk: 03/29/25 Dental Screening Dental Screen Date: 03/29/25 Did you have a dental visit in the last 12 months?: Yes Did you have a dental problem in the last 6 months where you did not have access to dental care?: No Was dental information given to patient?: Patient has dentist HPI HPI Comments History of Present Illness Details 69-year-old male with history of hyperte nsion and prediabetes presents to the office today for blood pressure follow-up. At last visit, lisinopril was increased to 20 mg daily which he has been taking as prescribed. Denies any adverse effects. No chest pain, palpitation, shortness of breath, headache, vision changes. Does not check his blood pressures at home. Hemoglobin A1c did increase to 6.2% from 5.9%. COUNT INCLUDES [facility] Medical History Prediabetes Barretts esophagus Elevated cholesterol HTN (hypertension) GERD (gastroesophageal reflux disease) Surgical History Hx of appendectomy History of back surgery History of esophagogastroduodenoscopy (EGD) H/O colonoscopy (~08/06/22) Family History Mother No problems noted. Father COPD (chronic obstructive pulmonary disease) Social History Housing: House Patient Tobacco Use Status: Former Tobacco user Tobacco use type: Cigarette Cigarette Packs Per Day: 0.5 Cigarettes Per Day: 10.0 e-Cigarette/Vaping Use: Former Use service: No Current occupational status: retired Cognitive needs: No Hearing needs: No Vision needs: Yes (rx glasses) Questionnaire PHQ-9 Over the last 2 weeks, how often have you been bothered by any of the following problems? 1. Little interest or pleasure in doing things: not at all 2. Feeling down, depressed, or hopeless: not at all 3. Trouble falling or staying asleep, or sleeping too much: not at all 4. Feeling tired or having little energy: not at all 5. Poor appetite or overeating: not at all 6. Feeling bad about yourself - or that you are a failure or have let yourself or your family down: not at all 7. Trouble concentrating on things, such as reading the newspaper or watching television: not at all 8. Moving or speaking so slowly that other people could have noticed. Or the opposite - being so fidgety or restless that you have been moving around a lot more than usual: not at all 9. Thoughts that you would be better off or of hurting yourself in some way: not at all Total score: 0 Source: Developed by Drs. Teodoro Guan, Leola Greenwood, Alexander Del Real and colleagues, with an educational ashley from [employer]. Thrive Questionnaire Date Thrive assessed: 03/29/25 I am a: Patient What is your living situation today?: I have a steady place to live Within the past 12 months, did the food you bought not last and you didn't have the money to get more?: Never true Within the past 12 months, did you worry whether your food would run out before you got money to buy more?: Never true Do you have trouble paying for medicines?: No Do you have trouble getting transportation to medical appointments?: No Do you have trouble paying your heating and electricity bill?: No Do you have trouble taking care of your child, family member or friend?: No Do you have trouble with day-to-day activities such as bathing, preparing meals, shopping, managing finances, etc.?: No Are you currently unemployed and looking for a job?: No Are you interested in more education?: No Please select the resources that you would like help with: None THRIVE Score: 0 AUDIT C Alcohol Use Questionnaire (AUDIT-C) 1. How often do you have a drink containing alcohol?: Monthly or less Total Score: 1 OPAL-7 AMB Questionnaire OPAL-7 Date OPAL - 7 assessed: 03/29/25 Feeling nervous, anxious, or on edge: 0 = Not at all Not being able to stop or control worryin = Not at all Worrying too much about different things: 0 = Not at all Trouble relaxin = Not at all Being so restless that it is hard to sit still: 0 = Not at all Becoming easily annoyed or irritable: 0 = Not at all Feeling afraid as if something awful might happen: 0 = Not at all Total OPAL-7 score (0-4 normal; 5-9 mild; 10-14 moderate; 15-21 severe): 0 Source: Developed by Drs. Teodoro Guan, Leola Greenwood, Alexander Del Real and colleagues, with an educational ashley from [employer]. Review of Systems Const All systems reviewed & are unremarkable except as noted in HPI and below Physical exam (Primary Care) Vital Signs: Last Vital Signs Temp 97.6 F 03/29/25 09:59 Pulse 72 03/29/25 09:59 Resp 16 03/29/25 09:59 BP 138/86 03/29/25 10:12 Pulse Ox 99 03/29/25 09:59 Oxygen Delivery Method Room Air 03/29/25 09:59 BMI result Body Mass Index 27.1 Tobacco/Smoking Status: Tobacco use Status Tobacco use date assessed 03/29/25 03/29/25 10:02 Patient Tobacco Use Status Former Tobacco user 03/29/25 10:02 Tobacco use type Cigarette 03/29/25 10:02 e-Cigarette/Vaping Use Former Use 03/29/25 10:02 PHQ-9: PHQ-9 Score PHQ-9: Total score 0 03/29/25 10:13 Thrive Assessment: Date of Thrive Assessment Date Thrive assessed 03/29/25 03/29/25 10:02 Coding Level of Care Code Est Pt Level 4 (96183) Complex EM visit Add On G2211 Diagnoses HTN (hypertension) I10 Prediabetes R73.03 Assessment & Plan Assessment & Plan (1) HTN (hypertension): Code(s): I10 - Essential (primary) hypertension Category: Medical Plan: Blood pressure controlled on recheck at 138/86. Component of white coat htn cannot be excluded. Continue lisinopril 20 mg daily. Follow sodium diet. Discussed increased activity/exercise. Reviewed renal function and electrolyte levels which are stable (2) Prediabetes: Code(s): R73.03 - Prediabetes Category: Medical Plan: Hemoglobin A1c increased to 6.2%. Counseled on diabetic diet and recommend increased activity/exercise. He is given resources regarding diabetic diet to review. Will follow-up in 4 months with repeat A1c completed prior to visit Plan Follow up 4 months labs to be completed prior to visit Patient Instructions: Prediabetes- [email or web address] Follow up
[2025-03-29 09:59] VITALS: BP 142/84; PULSE 72; RESP 16; TEMP 36.4; O2SAT 99; BMI 27.1
[2025-03-29 10:12] VITALS: BP 138/86
== END 2025-03-29 10:15 | disposition home or self-care (01) ==
LOC: HO.HMCHD 09:51
PROVIDERS: PCP Internal Medicine; Visit Provider Physician Assistant
DX: I10 Essential (primary) hypertension (principal); R73.03 Prediabetes

== ENCOUNTER → 2025-03-29 09:50 | Outpatient (BNVA) | payer MEDICARE, SELFPAY | PROVIDERS: PCP Internal Medicine; Visit Provider Physician Assistant | DX: I10 Essential (primary) hypertension (principal); R73.03 Prediabetes | CPT/HCPCS: 96127; 99212 ==

== ENCOUNTER 2025-08-02 09:05 | Outpatient (AMB) | payer MEDICARE, SELFPAY ==
--- NOTE | 2025-08-02 09:12 | MHC.PC.OV ---
Vital Signs 08/02/25 09:16 Height 5 ft 7 in Weight 83.461 kg BMI 28.8 BP 138/78 Respiration 16 Pulse 57 Pulse Source Pulse Oximeter Temp 97.1 F Temp Source Temporal Artery Scan Pulse Oximetry (%) 99 Oxygen Delivery Method Room Air Intake Visit Reasons: 4 Month F/U - see comments Personal Clothing Laundry Aide Required: No Accompanied by: Self / Same As Patient Allergies No Known Allergies Allergy (Verified 08/02/25 09:12) Medication List - Last Reconciled 08/02/25 by SYLVAIN Colmenares buspirone 5 mg PO BID lisinopril 20 mg PO DAILY omeprazole 20 mg PO DAILY sildenafil 100 mg PO DAILY simvastatin 40 mg PO DAILY Tobacco use date assessed: 03/29/25 Dental Screening Dental Screen Date: 03/29/25 HPI HPI Comments History of Present Illness Details 69-year-old male with history of prostate cancer, anxiety/tics, GERD, hypertension, hyperlipidemia presented to the office today for management of chronic conditions and to establish care. Prostate cancer-s/p prostatectomy 01/31/2025. Following a [facility]. Had PSA performed yesterday, results unknown at this time. Has follow-up appointment tomorrow. Does still have occasional leakage but no dysuria, hematuria, incomplete bladder emptying, nocturia Toth's esophagus/GERD-on omeprazole [address] Choi every 5 years, next due 2026 Anxiety/tics-managed with BuSpar 5 mg twice daily Hypertension-blood pressure 138/78. On lisinopril 20 mg daily Hyperlipidemia-due for lipid profile. On simvastatin ED-sildenafil Concerns: L hand painful when squeezing and ttp along joints ongoing about 1 joint. No swelling. No injury. R hand dominant. No weakness or paresthesia. Not dropping things. Pain is manageable, not taking anything for pain. Reports stiffness in the morning when he wakes Health maintenance: Last screening colonoscopy 2020 with 5 year follow-up advised. Dr. Choi PSA being followed by [facility] ROS: See HPI EXAM: Constitutional - Awake and Alert, No apparent distress Eyes - PERRL Cardiovascular - S1S2, RRR, No edema Respiratory - Normal lung expansion, Normal respiratory effort, No respiratory distress, CTA bilaterally Extremities - no calf tenderness bilaterally, no swelling MSK-left hand-no visible swelling, erythema, warmth. No bony abnormality. There is tenderness to palpation over all of the MCP joints. Full range of motion of the fingers. Decreased printer maintainer strength Skin - Warm/Dry Neurological - Alert & oriented x3 Psychological - Appropriate affect PFSH Medical History Prediabetes Barretts esophagus Elevated cholesterol HTN (hypertension) GERD (gastroesophageal reflux disease) Surgical History Hx of appendectomy History of back surgery History of esophagogastroduodenoscopy (EGD) H/O colonoscopy (~08/06/22) Family History Mother No problems noted. Father COPD (chronic obstructive pulmonary disease) Social History Housing: House Patient Tobacco Use Status: Former Tobacco user Tobacco use type: Cigarette Cigarette Packs Per Day: 0.5 Cigarettes Per Day: 10.0 e-Cigarette/Vaping Use: Former Use service: No Current occupational status: retired Cognitive needs: No Hearing needs: No Vision needs: Yes (rx glasses) Questionnaire Thrive Questionnaire Date Thrive assessed: 03/29/25 OPAL-7 AMB Questionnaire OPAL-7 Date OPAL - 7 assessed: 03/29/25 Source: Developed by Drs. Teodoro Guan, Leola Greenwood, Alexander Del Real and colleagues, with an educational ashley from [employer]. Physical exam (Primary Care) Vital Signs: Last Vital Signs Temp 97.1 F 08/02/25 09:16 Pulse 57 08/02/25 09:16 Resp 16 08/02/25 09:16 BP 138/78 08/02/25 09:16 Pulse Ox 99 08/02/25 09:16 Oxygen Delivery Method Room Air 08/02/25 09:16 BMI result Body Mass Index 28.8 Tobacco/Smoking Status: Tobacco use Status Tobacco use date assessed 03/29/25 08/02/25 09:18 Patient Tobacco Use Status Former Tobacco user 08/02/25 09:18 Tobacco use type Cigarette 08/02/25 09:18 e-Cigarette/Vaping Use Former Use 08/02/25 09:18 Thrive Assessment: Date of Thrive Assessment Date Thrive assessed 03/29/25 08/02/25 09:18 Coding Level of Care Code Est Pt Level 4 (97193) Complex EM visit Add On G2211 Diagnoses HTN (hypertension) I10 Elevated cholesterol E78.00 Barretts esophagus K22.70 Prediabetes R73.03 Left hand pain M79.642 Assessment & Plan Assessment & Plan (1) HTN (hypertension): Code(s): I10 - Essential (primary) hypertension Category: Medical Plan: Controlled. Continue lisinopril. Will check renal function electrolyte levels today (2) Elevated cholesterol: Code(s): E78.00 - Pure hypercholesterolemia, unspecified Category: Medical Plan: Lipid panel ordered. Continue simvastatin 40 mg nightly. Diet low in saturated fats and highly processed foods (3) Barretts esophagus: Code(s): K22.70 - Toth's esophagus without dysplasia Category: Medical Plan: Reviewed last EGD. Continue PPI. Follow-up with GI as scheduled for repeat EGD. Avoid triggering food items (4) Prediabetes: Code(s): R73.03 - Prediabetes Category: Medical Plan: A1c ordered to assess for any improvement or progression towards type 2 diabetes Counseled on diet (5) Left hand pain: Code(s): M79.642 - Pain in left hand Category: Medical Plan: X-ray of the left hand ordered, suspect osteoarthritis. Discussed with patient pending results, will likely refer to occupational therapy Plan Follow-up in the office in 4-6 months. Orders: Orders Basic Metabolic Panel Today E78.00 - Pure hypercholesterolemia, unspecified, I10 - Essential (primary) hypertension, K22.70 - Toth's esophagus without dysplasia, R73.03 - Prediabetes Liver Panel Today E78.00 - Pure hypercholesterolemia, unspecified, I10 - Essential (primary) hypertension, K22.70 - Toth's esophagus without dysplasia, R73.03 - Prediabetes XR hand LT 2V Today M79.642 - Pain in left hand Lipid Panel Today E78.00 - Pure hypercholesterolemia, unspecified, I10 - Essential (primary) hypertension, K22.70 - Toth's esophagus without dysplasia, R73.03 - Prediabetes Hemoglobin A1c Today E78.00 - Pure hypercholesterolemia, unspecified, I10 - Essential (primary) hypertension, K22.70 - Toth's esophagus without dysplasia, R73.03 - Prediabetes
[2025-08-02 09:16] VITALS: BP 138/78; PULSE 57; RESP 16; TEMP 36.2; O2SAT 99; BMI 28.8
== END 2025-08-02 09:49 | disposition home or self-care (01) ==
PROVIDERS: PCP Physician Assistant; Visit Provider Physician Assistant
DX: I10 Essential (primary) hypertension (principal); E78.00 Pure hypercholesterolemia, unspecified; K22.70 Barrett's esophagus without dysplasia; R73.03 Prediabetes; M79.642 Pain in left hand

== ENCOUNTER → 2025-08-02 09:05 | Outpatient (BNVA) | payer MEDICARE, SELFPAY | PROVIDERS: PCP Internal Medicine; Visit Provider Physician Assistant | DX: I10 Essential (primary) hypertension (principal); E78.00 Pure hypercholesterolemia, unspecified; K22.70 Barrett's esophagus without dysplasia; R73.03 Prediabetes; M79.642 Pain in left hand; Z79.899 Other long term (current) drug therapy | CPT/HCPCS: 99212 ==

== ENCOUNTER 2025-08-02 09:52 | Outpatient (REF) | payer MEDICARE, SELFPAY ==
--- NOTE | ~2025-08-02 | XR_ITS ---
EXAMINATION: XR HAND, LEFT CLINICAL INFORMATION: M79.642 - Pain in left hand COMPARISON: None available. TECHNIQUE: PA, lateral, and oblique views of the left hand. FINDINGS: Marginal osteophytes are apparent at the DIP joint of the second ray. The joint spaces preserved. Bony spurs are present along the ulnar side of the DIP joint possibly from remote avulsion fracture. Otherwise, there is no joint diastases, joint space narrowing, or other abnormalities. There are no erosions. 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 Correlate clinically to rule out acute injury Electronically signed by: Randall Starks MD 08/02/2025 10:39 AM EDT
[2025-08-02 13:34] LABS: Hemoglobin A1C 196.6239 umol/L; Total Hemoglobin (HGBA1C) 3821.9448 umol/L
[2025-08-02 13:41] LABS: Alanine Aminotransferase 29 U/L (0-40); Albumin Level 4.7 g/dL (3.5-5.0); Alkaline Phosphatase 72 U/L (39-117); Anion Gap 14 (12-20); Aspartate Amino Transferase 33 U/L (5-37); Blood Urea Nitrogen 14 mg/dL (9-16); Calcium 9.1 mg/dL (8.4-10.2); Carbon Dioxide 27 mmol/L (22-29); Chloride 104 mmol/L (96-108); Cholesterol 182 mg/dL (<200); Estimated Glomerular Filt Rate > 60; HDL Cholesterol 44 mg/dL (>40); Potassium 4.5 mmol/L (3.3-5.1); Sodium 140 mmol/L (135-145); Total Protein 7.4 g/dL (6.5-8.0); Triglycerides 241 mg/dL (<150)
== END 2025-08-02 09:53 | disposition home or self-care (01) ==
LOC: HO.10HDL 09:52
PROVIDERS: Visit Provider Physician Assistant
DX: I10 Essential (primary) hypertension (principal); E78.00 Pure hypercholesterolemia, unspecified; M79.642 Pain in left hand; K22.70 Barrett's esophagus without dysplasia; R73.03 Prediabetes
CPT/HCPCS: 36415; 73130; 80048; 80061; 80076; 83036

== ENCOUNTER → 2025-08-02 10:01 | Outpatient (BNV) | payer MEDICARE, SELFPAY | PROVIDERS: Visit Provider Radiology Diagnostic Radiology | DX: M79.642 Pain in left hand (principal) | CPT/HCPCS: 73130 ==